=== PATIENT | male | born 1980 | race Caucasian/White ===

== ENCOUNTER 2023-11-16 03:15 | Emergency (ER) | payer OTHER, SELFPAY ==
--- NOTE | ~2023-11-16 | XR_ITS ---
EXAMINATION: XR CHEST CLINICAL INFORMATION: Shortness of breath; question pneumonia. COMPARISON: None available. TECHNIQUE: Frontal view of the chest was obtained. FINDINGS: No significant abnormality is noted involving the heart, lungs, mediastinum, bony thorax or soft tissues. XR/XR chest 1V IMPRESSION: Unremarkable examination.
--- NOTE | ~2023-11-16 | CT_ITS ---
EXAMINATION: CT ABDOMEN AND PELVIS WITH CONTRAST CLINICAL INFORMATION: Nausea, abdominal pain and elevated WBC. COMPARISON: None available. TECHNIQUE: Multidetector volumetric images were obtained from the superior aspect of the liver through the pubic symphysis following administration 85 mL of Omnipaque 350 intravenous contrast. Sagittal and coronal reformatted images were obtained on the technologist's workstation. Oral contrast: No This CT examination was performed using dose optimization techniques as appropriate, variously including the following: *Automated exposure control *Adjustment of mA and/or kV according to patient size (this includes techniques or standardized protocols for targeted exams where dose is matched to indication/reason for exam; i.e. extremities or head) *Use of iterative reconstruction technique DLP: 801 mGy-cm FINDINGS: LUNG BASES: There are several small centrilobular groundglass opacities in the right lower lobe and anterolateral left lower lobe that are likely sequela of inflammation of the small airways. HEPATOBILIARY: Mild hepatomegaly. The right hepatic lobe is approximately 18 cm craniocaudal dimension. No focal lesion. Gallbladder has a normal appearance. No dilated bile ducts. PANCREAS: No edema, pancreatic ductal dilatation or mass. SPLEEN: 13.2 cm maximum dimension. ADRENAL GLANDS: Normal. KIDNEYS AND URETERS: Kidneys have normal size and cortical thickness. No perinephric fluid collection, urolithiasis or hydroureteronephrosis. BLADDER: Normal. BOWEL AND PERITONEUM: Stomach and small bowel are unremarkable. No dilated loops. The appendix is normal. No overt colonic wall thickening. No free fluid or pneumoperitoneum. Minimal haziness within mesenteric fat is consistent with mesenteric panniculitis. ABDOMINAL WALL: Unremarkable. VASCULATURE: Normal. LYMPH NODES: No pathologic sized lymph nodes in the abdomen or pelvis. No inguinal lymphadenopathy. PELVIC VISCERA: Unremarkable. MUSCULOSKELETAL: No acute or suspicious osseous abnormality. An old small focus of ossification is present within the distal right obturator internus at its femoral attachment. CT/CT abdomen pelvis w IV con IMPRESSION: * Small centrilobular groundglass opacities in both lower lobes could be a manifestation of noninfectious or infectious bronchiolitis. Otherwise, lung bases are unremarkable. * Minimal haziness of central mesenteric fat is consistent with minimal mesenteric panniculitis. * Mild hepatosplenomegaly. * No evidence of an inflammatory disease process along the gastrointestinal tract. No abdominal free fluid.
[2023-11-16 03:50] VITALS: BP 165/100; PULSE 67; RESP 22; TEMP 36.6; O2SAT 100; BMI 31.8
[2023-11-16 04:35] LABS: Hematocrit 49.8 % (42.0-52.0); Hemoglobin 17.4 g/dl (14.0-18.0); Mean Corpuscular HGB Conc 34.9 g/dl (31.0-36.0); Mean Corpuscular Hemoglobin 29.4 pg (27.0-33.0); Mean Corpuscular Volume 84.1 fL (80.0-98.0); Mean Platelet Volume 9.4 fL (9.4-12.4); Platelet Count 293 X10*3/uL (160-400); Red Blood Count 5.92 X10*6/uL (4.60-5.80); Red Cell Distribution Width 13.3 % (11.0-16.0); White Blood Count 13.3 X10*3/uL (4.8-10.8)
[2023-11-16 04:51] LABS: Alanine Aminotransferase 24 U/L (0-40); Albumin Level 5.4 g/dL (3.5-5.0); Alkaline Phosphatase 66 U/L (39-117); Anion Gap 23 (12-20); Aspartate Amino Transferase 16 U/L (5-37); Bilirubin Total 0.8 mg/dL (0.0-1.0); Blood Urea Nitrogen 11 mg/dL (9-16); Calcium 10.5 mg/dL (8.4-10.2); Carbon Dioxide 23 mmol/L (22-29); Chloride 100 mmol/L (96-108); Creatinine Clr Calc Pharmacy 106.4; Estimated Glomerular Filt Rate > 60; Glucose Random 137 mg/dL (60-115); Lipase 26 U/L (8-78); Potassium 4.7 mmol/L (3.3-5.1); Sodium 141 mmol/L (135-145); Total Protein 8.7 g/dL (6.5-8.0)
[2023-11-16 05:54] VITALS: BP 173/99; PULSE 64; RESP 16; TEMP 36.6; O2SAT 100
--- NOTE | 2023-11-16 06:33 | MHC.EDTECH ---
Patient urine sample collected and sent to lab .
[2023-11-16 06:38] LABS: Appearance Urine Clear; Color Urine Yellow; Glucose Urine UA Negative (Negative); Leukocyte Esterase Urine Negative (Negative); Nitrite Urine Negative (Negative); Specific Gravity - Urine >= 1.030 (1.005-1.025); UMIC TRIGGER UACC YES; Urine Blood Negative (Negative); Urine Ketones >=160 mg/dL (Negative); Urine Protein 30 (1+) mg/dL (Neg-Trace)
[2023-11-16 06:50] LABS: Bacteria Urine None Seen (None Seen); Hyaline Casts Urine 0-2 /LPF (0-2); RBC Urine 0-2 /HPF (0-2); Squamous Epithelial Cell Urine 0-2 /HPF (0-2); WBC Urine 0-5 /HPF (0-5)
[2023-11-16 07:03] LABS: Ethanol < 10 mg/dL
--- NOTE | 2023-11-16 07:08 | ED.NAVMDI ---
HPI - Nausea/Vomiting/Diarrhea General Chief complaint: Nausea/Vomiting/Diarrhea Stated complaint: abdominal pain Time Seen by Provider: 11/16/23 06:44 Source: patient Mode of arrival: ambulatory Limitations: no limitations History of Present Illness HPI Narrative: 43 year old male hx of obesity on Mounjaro presenting to the emergency department with severe abdominal pain, nausea, vomiting since last night. Patient reports that he was down here for a wedding he had 4-5 mixed drinks and shortly after started feeling this way. He reports that this has happened to him before and this seems to be what happens when hes taking Mounjaro and drinks at the same time. Last time this happened he needed 4 L of fluids, zofran, morphine and two hours of rest and he was feeling better. No SI or HI. No blood in vomit. Has been on this med on and off for the past few years for weight loss. Denies fevers, chills, cp, sob, diarrhea, vision changes, dizizness, weakness. Related Data Previous Rx's ?Medication ?Instructions ?Recorded albuterol sulfate 90 mcg/actuation 2 inh inhalation Q4-6H PRN 11/16/23 breath activated powder inhaler shortness of breath or wheezing #1 ea doxycycline hyclate 100 mg capsule 100 mg PO BID 10 days #20 caps 11/16/23 ondansetron 4 mg disintegrating 4 mg PO Q6H PRN nausea and 11/16/23 tablet vomiting #14 tabs prednisone 20 mg tablet 40 mg (2 x 20 mg) PO DAILY 5 days 11/16/23 #10 tabs Allergies Allergy/AdvReac Type Severity Reaction Status Date / Time No Known Allergies Allergy Verified 11/16/23 03:53 Review of Systems Review of Systems: Yes all other systems are reviewed and are negative [facility] Past Medical History Attestation statement: The following information was validated with the patient. Source: old records reviewed and nursing notes reviewed Social History Social History Advance Directives: Yes Advance Directives Information Provided: Yes Advance Directives on File: No Do you have a plan to hurt others: No Plan Physical Exam Vital Signs: Vital Signs: Last Vital Signs Temp 98.6 F 11/16/23 10:00 Pulse 111 H 11/16/23 10:00 Resp 17 11/16/23 10:00 BP 135/80 11/16/23 10:00 Pulse Ox 100 11/16/23 08:00 O2 Del Method Room Air 11/16/23 10:00 O2 Flow Rate 97 11/16/23 10:00 BMI result Body Mass Index 31.8 vss Appearance: Alert.? Oriented X3.? No acute distress.? Head: Normocephalic, atraumatic, no step-offs or deformities Eyes: Pupils equal, round and reactive to light.? Neck: Normal inspection.? Neck supple.? CVS: Normal heart rate and rhythm.? Pulses normal.? Respiratory: No respiratory distress.? Breath sounds normal.? Abdomen: Soft and diffuse discomfort .? Skin: Skin warm and dry.? Normal skin color.? Normal skin turgor.? Extremities: No lower extremity edema.? No calf ttp. 5/5 strength to bilateral upper and lower extremities Neuro: Oriented X 3.? No motor deficit.? No sensory deficit. CN 2-12 intact Course Reevaluation(s) Reevaluation #1: Patient is noted to have leukocytosis 13.4 likely secondary to nausea, vomiting. Chemistry w/ elevated anion gap likey secondary to ethanol consumption. UA clean. Ethanol less than 10 now last consumed alcohol last night. Abd Ct pending. Patient still complaining of nausea, vomiting, abd pain despite meds. Now will order reglan, benadryl, more fluids and zofran. Time: 08:43 Reevaluation #2: Patient feeling a lot better. Tolerating p.o.. CT scan showing mild hepatosplenomegaly, haziness central mesenteric fat concerning for mesenteric panniculitis. Small central lobular ground-glass opacities in both lower lobes could be noninfectious or infectious, patient now tells me he has been coughing for a little bit and never thought much of it. Will treat him for pneumonia with doxycycline, albuterol and prednisone. Will obtain a dedicated chest x-ray and then patient to be discharged home. Written scripts were given to patient as he does live in [place]. Time: 11:56 Reevaluation #3: Educated patient on diagnosis and treatment plan, answered all question, patient verbalizes understanding. At this time patient will be discharged home, advised to return with new or worsening symptoms. Educated on worrisome signs and symptoms and when to return. At this time I feel comfortable discharge home. Medications Administered Generic Name Dose Route Start Last Admin Trade Name Fregeorge PRN Reason Stop Dose Admin Sodium Chloride 1,000 mls @ 999 mls/hr 11/16/23 11:00 11/16/23 11:02 Ns IV 11/16/23 12:00 999 mls/hr .Q1H1M JAYANT Administration Discontinued Medications Generic Name Dose Route Start Last Admin Trade Name Stephanie PRN Reason Stop Dose Admin Diphenhydramine HCl 25 mg 11/16/23 08:41 11/16/23 08:59 Diphenhydramine Hcl 50 Mg/Ml Vial IVPUSH 11/16/23 08:42 25 mg ONCE ONE Administration Sodium Chloride 1,000 mls @ 999 mls/hr 11/16/23 07:00 11/16/23 08:15 Ns IV 11/16/23 08:00 Infused .Q1H1M JAYANT Infusion Sodium Chloride 1,000 mls @ 999 mls/hr 11/16/23 08:45 11/16/23 10:21 Ns IV 11/16/23 09:45 Infused .Q1H1M JAYANT Infusion Iohexol 100 ml 11/16/23 07:49 11/16/23 07:49 Iohexol 350 Mg/Ml 100 Ml Infus..Btl IV 11/16/23 07:50 85 ml ONCE ONE Administration Ketorolac Tromethamine 30 mg 11/16/23 06:54 11/16/23 07:14 Ketorolac Tromethamine 15 Mg/Ml Vial IVPUSH 11/16/23 06:55 30 mg ONCE ONE Administration Metoclopramide HCl 10 mg 11/16/23 08:41 11/16/23 08:59 Metoclopramide Hcl 10 Mg/2 Ml Vial IVPUSH 11/16/23 08:42 10 mg ONCE ONE Administration Morphine Sulfate 2 mg 11/16/23 08:41 11/16/23 09:00 Morphine Sulfate 2 Mg/Ml Cartridge IVPUSH 11/16/23 08:42 2 mg ONCE ONE Administration Protocol Ondansetron HCl 4 mg 11/16/23 06:54 11/16/23 07:14 Ondansetron Hcl 4 Mg/2 Ml Vial IVPUSH 11/16/23 06:55 4 mg ONCE ONE Administration Medical Decision Making Medical Decision Making [facility] Narrative: 0713 43 year old male presents w/ nausea, vomiting and abd pain sp drinking last night on mounjaro PE diffuse abd discomfort Hx and physical exam concerning for nausea and vomiting due to alcohol abuse vs hangover vs obstruction vs pancreatitis. Will rule out metabolic derrangmets. Unlikley acute abdomen, appendicitis, diverticulitis, cholecystitis. plan- labs, urine, imaging Differential Diagnosis Differential Diagnoses: The differential diagnosis associated with the presentation includes Hx and physical exam concerning for nausea and vomiting due to alcohol abuse vs hangover vs obstruction vs pancreatitis. Will rule out metabolic derrangmets. Unlikley acute abdomen, appendicitis, diverticulitis, cholecystitis. Admission/Observation Consideration of admission/observation: Escalation of care including admission/observation considered Possible Lab Data [facility] Lab Attestation statement: I reviewed the patient's lab results. 11/16/23 04:31 11/16/23 04:31 Labs: Lab Results 11/16/23 11/16/23 Range/Units 04:31 06:29 WBC 13.3 H (4.8-10.8) X10*3/uL RBC 5.92 H (4.60-5.80) X10*6/uL Hgb 17.4 (14.0-18.0) g/dl Hct 49.8 (42.0-52.0) % MCV 84.1 (80.0-98.0) fL MCH 29.4 (27.0-33.0) pg MCHC 34.9 (31.0-36.0) g/dl RDW 13.3 (11.0-16.0) % Plt Count 293 (160-400) X10*3/uL MPV 9.4 (9.4-12.4) fL Absolute Nucleated RBC 0.000 (0.0-0.012) X10*3/uL Nucleated RBC % (auto) 0.0 (0.0-0.2) /100WBC Sodium 141 (135-145) mmol/L Potassium 4.7 (3.3-5.1) mmol/L Chloride 100 (96-108) mmol/L Carbon Dioxide 23 (22-29) mmol/L Anion Gap 23 H (12-20) BUN 11 (9-16) mg/dL Creatinine 1.14 (0.5-1.4) mg/dL Estim Creat Clear Calc 106.4 Estimated GFR > 60 Random Glucose 137 H (60-115) mg/dL Calcium 10.5 H (8.4-10.2) mg/dL Total Bilirubin 0.8 (0.0-1.0) mg/dL AST 16 (5-37) U/L ALT 24 (0-40) U/L Alkaline Phosphatase 66 (39-117) U/L Total Protein 8.7 H (6.5-8.0) g/dL Albumin 5.4 H (3.5-5.0) g/dL Lipase 26 (8-78) U/L Urine Color Yellow Urine Appearance Clear Urine pH 8.0 (5.0-9.0) Ur Specific [place]ternut >= 1.030 H (1.005-1.025) Urine Protein 30 (1+) H (Neg-Trace) mg/dL Urine Glucose (UA) Negative (Negative) mg/dL Urine Ketones >=160 (Negative) mg/dL Urine Blood Negative (Negative) Urine Nitrite Negative (Negative) Ur Leukocyte Esterase Negative (Negative) Urine RBC 0-2 (0-2) /HPF Urine WBC 0-5 (0-5) /HPF Ur Squamous Epith Cells 0-2 (0-2) /HPF Urine Bacteria None Seen (None Seen) Hyaline Casts 0-2 (0-2) /LPF Ethyl Alcohol < 10 mg/dL Independent Interpretation I performed an independent interpretation of an: CT Scan Radiology Impression Discussion of test interpretation with radiology: I have reviewed the radiologist's reading. Prescription Management I considered prescription management with: Other (zofran ) Chronic Conditions Patient?s care impacted by: Other (obesity ) Critical Care Time Critical Care Time Critical Care Time: Yes Total Critical Care Time: 45 Attestation: I attest to this time spent taking care of the patient, obtaining history, physical, reviewing labs, imaging, speaking to my attending, specialist or hospitalist. Discharge Plan Discharge Clinical Impression: Abdominal pain, Nausea & vomiting, Hangover, Pneumonia Patient Disposition: Still a Patient Instructions: Alcohol Intoxication (ED), Acute Nausea and Vomiting (ED), Abdominal Pain (ED), Pneumonia (ED) Additional Instructions: Take your medications as prescribed. If you were prescribed antibiotics today, it is important that you take your medication to their entirety, do not skip any doses, do not finish them early. Follow-up with your primary care provider this week. Return to the emergency department with new or worsening symptoms. In case of emergency call 911 CT/CT abdomen pelvis w IV con IMPRESSION: * Small centrilobular groundglass opacities in both lower lobes could be a manifestation of noninfectious or infectious bronchiolitis. Otherwise, lung bases are unremarkable. * Minimal haziness of central mesenteric fat is consistent with minimal mesenteric panniculitis. * Mild hepatosplenomegaly. * No evidence of an inflammatory disease process along the gastrointestinal tract. No abdominal free fluid. Prescriptions: New ondansetron 4 mg tablet,disintegrating 4 mg PO Q6H PRN (Reason: nausea and vomiting) Qty: 14 0RF doxycycline hyclate 100 mg capsule 100 mg PO BID 10 Days Qty: 20 0RF albuterol sulfate 90 mcg/actuation aerosol powdr breath activated 2 inh inhalation Q4-6H PRN (Reason: shortness of breath or wheezing) Qty: 1 0RF prednisone 20 mg tablet 40 mg PO DAILY 5 Days Qty: 10 0RF Referrals: Physician,Unknown J [Primary Care Provider] - 2 days Stand Alone Forms: Work/School Release Print Language: Wallisian
[2023-11-16] MEDS: ondansetron HCL 4 MG/2 ML VIAL IVPUSH (07:14)
[2023-11-16] MEDS: Ketorolac Tromethamine 15 MG/ML VIAL 30 MG IVPUSH (07:14)
[2023-11-16] MEDS: 0.9 % Sodium Chloride 1,000 ML 999 ML IV ×3 (07:14→11:02)
[2023-11-16] MEDS: iohexoL 350 MG/ML 100 ML INFUS..BTL IV (07:49)
[2023-11-16 08:00] VITALS: BP 167/84; PULSE 63; RESP 18; TEMP 37; O2SAT 100
[2023-11-16] MEDS: diphenhydrAMINE HCL 50 MG/ML VIAL 25 MG IVPUSH (08:59)
[2023-11-16] MEDS: Metoclopramide HCl 10 MG/2 ML VIAL IVPUSH (08:59)
[2023-11-16] MEDS: Morphine Sulfate 2 MG/ML CARTRIDGE IVPUSH (09:00)
--- NOTE | 2023-11-16 09:07 | PC.NURSE ---
pt verbalizing pain level slightly decreased to a 7/10 post medication administration. medication now administered per provider order. effectiveness pending.
[2023-11-16 10:00] VITALS: BP 135/80; PULSE 111; RESP 17; TEMP 37
[2023-11-16 12:20] VITALS: BP 135/80; PULSE 111; RESP 17; TEMP 37; O2SAT 100
== END 2023-11-16 14:00 | disposition still patient (30) ==
PROVIDERS: Physician Assistant; Emergency Provider Emergency Medicine
DX: R10.9 Unspecified abdominal pain (principal); J18.9 Pneumonia, unspecified organism; F10.129 Alcohol abuse with intoxication, unspecified; Y90.9 Presence of alcohol in blood, level not specified; R11.2 Nausea with vomiting, unspecified; R16.2 Hepatomegaly with splenomegaly, not elsewhere classified; R05.9 Cough, unspecified; Z79.899 Other long term (current) drug therapy
CPT/HCPCS: 36415; 71045; 74177; 80053; 80307; 81001; 83690; 85027; 96361; 96374; 96375; 99284; J1200; J1885; J2270; J2405; J2765; Q9967